=== PATIENT | male | born 1985 | race Caucasian/White ===

== ENCOUNTER 2017-02-22 16:42 | Emergency (ER) | payer SELFPAY ==
[~2017-02-22] VITALS: Ht 182.9 cm; Wt 83.6 kg
[2017-02-22 17:59] LABS: HEMATOCRIT 37.9 % (38.0-50.0); MCH 30.1 PG (29.0-34.0); MCHC 35.1 G/DL (30.0-36.0); MCV 85.7 FL (86-99); MEAN PLAT.VOLUME 10.2 uM^3 (9.0-12.4); PLATELET COUNT 276 K/uL (156-360); RBC DIS.WIDTH-CV 11.3 % (11.8-14.6); RBC DIS.WIDTH-SD 35.3 % (39-53); RED BLOOD COUNT 4.42 M/uL (4.00-5.50); WHITE BLOOD COUNT 7.1 K/uL (4.1-10.2)
[2017-02-22 18:11] LABS: CHLORIDE 103 mEq/L (99-109); POTASSIUM 3.9 mEq/L (3.7-5.4); SODIUM 139 mEq/L (136-147)
[2017-02-22 18:13] LABS: GLUCOSE 98 mg/dL (70-99)
[2017-02-22 18:14] LABS: ANION GAP 9 MEQ/L (2-14)
[2017-02-22 18:18] LABS: UREA NITROGEN (BUN) 8 mg/dL (9-23)
[2017-02-22 18:26] LABS: GFR ESTIMATE (CALCULATED) > 59 mL/min/ (58.99-99999)
[2017-02-22 19:59] VITALS: BP 116/72
[2017-02-22 20:00] LABS: POINT-OF-CARE METER ID UU14100415
== END 2017-02-22 22:26 | disposition left against medical advice (07) ==
LOC: EME 16:42
DX: R41.82 Altered mental status, unspecified (principal); T20.06XA Burn of unspecified degree of forehead and cheek, initial encounter; X08.8XXA Exposure to other specified smoke, fire and flames, initial encounter; R55 Syncope and collapse; F12.90 Cannabis use, unspecified, uncomplicated; Z53.20 Procedure and treatment not carried out because of patient's decision for unspecified reasons
CPT/HCPCS: 70450; 80048; 85027; 99281; 99283